=== PATIENT | female | born 1965 | race African-American/Black ===

== ENCOUNTER 2017-08-14 19:42 | Emergency (ER) | payer BC, MEDICARE | END 2017-08-14 21:46 | disposition home or self-care (01) | LOC: ERS 19:42 | DX: I83.91 Asymptomatic varicose veins of right lower extremity (principal); N17.9 Acute kidney failure, unspecified; I10 Essential (primary) hypertension; E11.9 Type 2 diabetes mellitus without complications; K59.00 Constipation, unspecified; F32.9 Major depressive disorder, single episode, unspecified; R73.03 Prediabetes; Z79.899 Other long term (current) drug therapy | CPT/HCPCS: 99283 ==

== ENCOUNTER 2017-08-28 19:41 | Emergency (ER) | payer MEDICARE ==
[2017-08-28 20:06] LABS: #Eosinphils 0.2 thou/uL (0.0-0.7); #Lymphocytes 2.4 thou/uL (1.20-3.40); #Monocytes 0.6 thou/uL (0.11-0.59); #Neutrophils 5.2 thou/uL (1.40-6.50); %Basophils 0.4 % (0.0-1.0); %Eosinophils 1.8 % (0.0-10.0); %Lymphocytes 29.1 % (21.0-51.0); %Monocytes 7.1 % (0.0-10.0); %Neutrophils 61.6 % (42.0-75.0); Hemoglobin 11.3 g/dL (12.0-16.0); Mean Corpuscular HGB CONC 32.7 g/dL (32.0-36.0); Mean Corpuscular Hemoglobin 27.9 pg (27.0-31.0); Mean Corpuscular Volume 85.3 fl (81.0-99.0); Mean Platelet Volume 8.4 fL (7.4-10.4); Platelet Count 211 thou/uL (130-400); RBC Distribution Width 14.4 % (11.5-14.5); Red Blood Cell (RBC) Count 4.04 mill/uL (4.20-5.40); White Blood Cell (WBC) Count 8.4 thou/uL (4.8-10.8)
[2017-08-28 20:12] LABS: INR-International Normal Ratio 1.1; PTT 31.8 SEC (22.9-36.1); Prothrombin Time 13.9 SEC (12.0-14.7)
[2017-08-28 20:30] LABS: ALT (SGPT) 20 U/L (8-55); AST (SGOT) 24 U/L (5-34); Albumin 3.9 g/dL (3.5-5.0); Alkaline Phosphatase 73 U/L (40-150); Anion Gap 14 mmol/L (10-20); BUN (Urea Nitrogen) 20 mg/dL (9.8-20.1); Bilirubin, Total 0.3 mg/dL (0.2-1.2); Calc. Creatinine Clearance 0 mL/min (70-130); Calcium 9.2 mg/dL (7.8-10.44); Carbon Dioxide 21 mmol/L (22-29); Chloride 109 mmol/L (98-107); Estimated GFR-MDRD Greater than 90; Globulin 3.4 g/dL (2.4-3.5); Glucose 81 mg/dL (70-105); Potassium 3.7 mmol/L (3.5-5.1); Protein, Total 7.3 g/dL (6.0-8.3); Sodium 140 mmol/L (136-145)
[2017-08-28] MEDS ORDERED: Lidocaine 1% w/Epinephrine 1:100K 20 ML VIAL ONE (20:49)
== END 2017-08-28 21:36 | disposition home or self-care (01) ==
LOC: ERS 19:41
DX: I83.91 Asymptomatic varicose veins of right lower extremity (principal); I10 Essential (primary) hypertension; F32.9 Major depressive disorder, single episode, unspecified; Z79.899 Other long term (current) drug therapy
CPT/HCPCS: 80053; 85025; 85610; 85730; 99283; J2001

== ENCOUNTER 2018-06-27 23:09 | Emergency (ER) | payer MEDICARE ==
--- NOTE | 2018-06-28 07:47 | CT ---
Ct of head noncontrast: INDICATION: Head injury, pain. FINDINGS: There is no intracranial hemorrhage, mass effect, or midline shift. Ventricular system is normal in size. There is no depressed calvarial fracture or pneumocephalus. No fluid level of the paranasal s inuses. IMPRESSION: 1. No acute intracranial hemorrhage or mass effect. 2. Mild localized scalp contusion of the suboccipital region, to the right of midline. POS: C
--- NOTE | 2018-06-28 07:48 | CT ---
CERVICAL SPINE CT NONCONTRAST: INDICATION: Posttraumatic pain, fall. 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 No craniocervical distraction injury. Vertebr al body heights and alignment are preserved. No retropulsion of bone into the vertebral canal. IMPRESSION: No acute osseous abnormality of the cervical spine. POS: C
== END 2018-06-28 01:07 | disposition home or self-care (01) ==
LOC: ERS 23:09
DX: S00.03XA Contusion of scalp, initial encounter (principal); I10 Essential (primary) hypertension; F32.9 Major depressive disorder, single episode, unspecified; R73.03 Prediabetes; E78.00 Pure hypercholesterolemia, unspecified; Z79.899 Other long term (current) drug therapy; Z79.51 Long term (current) use of inhaled steroids; W17.89XA Other fall from one level to another, initial encounter
CPT/HCPCS: 70450; 72125

== ENCOUNTER 2023-01-12 19:48 | Emergency (ER) | payer OTHER, MEDICAID ==
[~2023-01-12 19:48] MED LIST: Iopamidol-370 76% 500 ML MDV (1 ML CHARGE) ONE
[2023-01-12 20:46] LABS: Bacteria/HPF None Seen HPF (None Seen); Bilirubin Negative (Negative); Blood, Urine Negative (Negative); CAUTI Indications for Culture Pelvic or flank pain; Clarity Clear (Clear); Glucose, Urine (Dipstick) Normal (Negative); Ketone, Urine Negative (Negative); Leukocyte Negative Leu/uL (Negative); Nitrite Negative (Negative); Protein, Urine (Dipstick) Negative (Neg-Trace); RBC/HPF 0-3 HPF (0-3); Specific Gravity, Urine 1.024 (1.002-1.036); Squamous Epithelial None Seen HPF (0-3); Urobilinogen Normal mg/dL (Less than 2); WBC/HPF 0-3 HPF (0-3); pH, Urine 6.5 (5.0-9.0)
[2023-01-12 20:48] LABS: Urine Culture Reflex No No
[2023-01-12 21:07] LABS: #Eosinphils 0.1 thou/uL (0.0-0.7); #Neutrophils 10.1 thou/uL (1.40-6.50); %Basophils 0.1 % (0.0-1.0); %Eosinophils 0.9 % (0.0-10.0); %Lymphocytes 21.9 % (21.0-51.0); %Monocytes 6.7 % (0.0-10.0); %Neutrophils 70.1 % (42.0-75.0); Hematocrit 36.8 % (36.0-47.0); Hemoglobin 11.8 g/dL (12.0-16.0); Mean Corpuscular HGB CONC 32.1 g/dL (32.0-36.0); Mean Corpuscular Volume 87.4 fl (78.0-98.0); Mean Platelet Volume 10.7 fL (7.4-10.4); Platelet Count 268 10x3/uL (130-400); RBC Distribution Width 17.4 % (11.5-14.5); Red Blood Cell (RBC) Count 4.21 mill/uL (4.20-5.40); White Blood Cell (WBC) Count 14.4 10x3/uL (4.8-10.8)
[2023-01-12] MEDS ORDERED: Morphine 4 MG/ML VIAL ONE (21:07)
[2023-01-12] MEDS ORDERED: Ondansetron PF 4 MG/2 ML Vial ONE (21:07)
[2023-01-12] MEDS ORDERED: Aspirin Chewable 81 MG TAB ONE (21:07)
[2023-01-12 21:25] LABS: PTT 25.3 sec (22.9-36.1); Prothrombin Time 13.9 sec (12.0-14.7)
[2023-01-12 21:34] LABS: Troponin I Less than 0.010 ng/mL (< 0.028)
[2023-01-12 21:38] LABS: ALT (SGPT) 27 U/L (8-55); AST (SGOT) 22 U/L (5-34); Albumin 4.7 g/dL (3.5-5.0); Alkaline Phosphatase 88 U/L (40-110); Anion Gap 13 mmol/L (10-20); BUN (Urea Nitrogen) 20 mg/dL (9.8-20.1); Bilirubin, Total 0.2 mg/dL (0.2-1.2); Calc. Creatinine Clearance 0 mL/min (70-130); Calcium 9.6 mg/dL (7.8-10.44); Carbon Dioxide 31 mmol/L (22-29); Chloride 102 mmol/L (98-107); Estimated GFR 78; Globulin 3.2 g/dL (2.4-3.5); Glucose 85 mg/dL (70-105); Lipase 12 U/L (8-78); Magnesium 2.5 mg/dL (1.6-2.6); Potassium 3.8 mmol/L (3.5-5.1); Protein, Total 7.9 g/dL (6.0-8.3); Sodium 142 mmol/L (136-145)
[2023-01-13] MEDS ORDERED: Ketorolac Tromethamine 30 MG/ML VIAL ONE (01:28)
[2023-01-13] MEDS ORDERED: HYDROmorphone 0.5 MG/0.5 ML SYRINGE ONE (01:29)
== END 2023-01-13 02:30 | disposition home or self-care (01) ==
LOC: ERS 19:48
DX: N13.2 Hydronephrosis with renal and ureteral calculous obstruction (principal); I10 Essential (primary) hypertension; E78.00 Pure hypercholesterolemia, unspecified
CPT/HCPCS: 71045; 71275; 74174; 80053; 81001; 83690; 83735; 84484; 85025; 85610; 85730; 87086; 93005; 96374; 96375; J1170; J1885; J2270; J2405; Q9967